=== PATIENT | male | born 1975 | race Caucasian/White ===

== ENCOUNTER 2017-04-13 19:26 | Emergency (ER) | payer SELFPAY ==
[2017-04-13 19:26] VITALS: BMI 28.7
--- NOTE | 2017-04-13 21:23 | C.PDOC ---
History Of Present Illness Patient is a 41 year old male brought in by [facility] for unknown reasons. Patient was reported to be intoxicated in [facility]. Denies any complaints at this time. Time Seen by Provider: 04/13/17 19:37 Chief Complaint (Nursing): Substance Abuse History Per: Patient History/Exam Limitations: no limitations Onset/Duration Of Symptoms: Hrs Current Symptoms Are (Timing): Still Present Suicide/Self Injury Attempted (Context): None Modifying Factor(s): Alcohol Associated Symptoms: denies: Depression, Suicidal Thoughts, Suicidal Plan Involuntary Hold By: None Recent travel outside of the [place]: No Past Medical History Reviewed: Historical Data, Nursing Documentation, Vital Signs Vital Signs: Last Vital Signs Temp 97.7 F 04/13/17 22:09 Pulse 84 04/14/17 01:55 Resp 18 04/14/17 01:55 BP 105/56 L 04/14/17 01:55 Pulse Ox 98 04/14/17 01:55 - Medical History PMH: HTN Surgical History: No Surg Hx - [facility] Procedures INJECT/INFUSE NEC (09/26/14) Family History: States: Unknown Family Hx - Social History Hx Tobacco Use: No Hx Alcohol Use: Yes Hx Substance Use: No - Immunization History Hx Tetanus Toxoid Vaccination: No Hx Influenza Vaccination: No Hx Pneumococcal Vaccination: No Review Of Systems Constitutional: Negative for: Fever, Chills Gastrointestinal: Negative for: Nausea, Vomiting, Diarrhea Neurological: Positive for: Other (ETOH intoxication) Physical Exam - Physical Exam Appears: Non-toxic, Other (ETOH on breath) Skin: Normal Color, Warm, Dry Head: Atraumatic, Normacephalic Oral Mucosa: Moist Chest: Symmetrical, No Tenderness Cardiovascular: Rhythm Regular, No Murmur Respiratory: Normal Breath Sounds, No Rales, No Rhonchi, No Wheezing Gastrointestinal/Abdominal: Soft, No Tenderness Neurological/Psych: Oriented x3, Normal Speech, Normal Cognition ED Course And Treatment O2 Sat by Pulse Oximetry: 96 Medical Decision Making Medical Decision Making: Pt ambulated with steady gait Stable for discharge Disposition - Disposition Disposition: HOME/ ROUTINE Disposition Time: 05:21 Condition: FAIR Forms: Gen Discharge Inst Greenlandic - Clinical Impression Clinical Impression: Alcohol abuse with intoxication - Scribe Statement The provider has reviewed the documentation as recorded by the [place] All medical record entries made by the Scribe were at my direction and personally dictated by me. I have reviewed the chart and agree that the record accurately reflects my personal performance of the history, physical exam, medical decision making, and the department course for this patient. I have also personally directed, reviewed, and agree with the discharge instructions and disposition.
[2017-04-13 22:10] VITALS: RESP 18
[2017-04-14 05:49] VITALS: BP 129/83; PULSE 90; TEMP 98.1; O2SAT 99
== END 2017-04-14 05:53 | disposition home or self-care (01) ==
LOC: C.ER 19:26
DX: F10.129 Alcohol abuse with intoxication, unspecified (principal)

== ENCOUNTER 2017-04-16 17:53 | Observation (INO) | payer SELFPAY ==
[2017-04-16 18:12] VITALS: BMI 30.9
[2017-04-16 19:55] VITALS: O2SAT 98
--- NOTE | 2017-04-16 21:26 | C.PDOC ---
History Of Present Illness Pt was BIBEMS due to public alcohol intoxication. Time Seen by Provider: 04/16/17 20:56 Chief Complaint (Nursing): Substance Abuse History Per: Patient, EMS History/Exam Limitations: intoxication Onset/Duration Of Symptoms: Unknown (today) Current Symptoms Are (Timing): Still Present Modifying Factor(s): Alcohol Severity: Severe Additional History Per: Prior Records Past Medical History Reviewed: Historical Data, Nursing Documentation, Vital Signs Vital Signs: Last Vital Signs Temp 97.7 F 04/16/17 17:55 Pulse 110 H 04/16/17 19:55 Resp 18 04/16/17 19:55 BP 125/86 04/16/17 19:55 Pulse Ox 98 04/16/17 21:26 - Medical History PMH: HTN Other PMH: Alcohol abuse - [facility] Procedures INJECT/INFUSE NEC (09/26/14) Family History: States: Unknown Family Hx - Social History Hx Tobacco Use: No Hx Alcohol Use: Yes Hx Substance Use: No - Immunization History Hx Tetanus Toxoid Vaccination: No Hx Influenza Vaccination: No Hx Pneumococcal Vaccination: No Review Of Systems Review Of Systems: ROS cannot be obtained secondary to pt's inabilty to answer questions. Physical Exam - Physical Exam Appears: Non-toxic, No Acute Distress, Other (AOB, intoxicated) Skin: Normal Color, Warm, Dry Head: Atraumatic Eye(s): bilateral: PERRL Neck: Normal ROM, No Midline Cervical Tenderness, No Step Off Deformity, Supple Chest: Symmetrical, No Deformity Cardiovascular: Rhythm Regular Respiratory: Normal Breath Sounds, No Accessory Muscle Use Gastrointestinal/Abdominal: Soft Extremity: Normal ROM, No Deformity Neurological/Psych: Eyes Open With Command Pain Response: Withdraws With Pain Gait: Unable To Assess ED Course And Treatment O2 Sat by Pulse Oximetry: 98 Pulse Ox Interpretation: Normal Reassessment Condition: Improved ED OBSERVATION Discharge: Yes Date of observation admission: 04/16/17 Time of observation admission: 21:00 - Observation admission statement Patient is being placed in observation because:: Alcohol intoxication - Goals of Observation Goals of observation are:: Sobriety - Progress Note Progress Note: 04/17/17 01:11 Pt is now clinically sober. AAOx3. Steady gait. He is asking to be discharged home. Disposition Counseled Patient/Family Regarding: Diagnosis, Need For Followup - Disposition Disposition: HOME/ ROUTINE Disposition Time: 01:12 Condition: IMPROVED - Clinical Impression Clinical Impression: Alcohol abuse with intoxication
[2017-04-17 01:28] VITALS: BP 128/79; PULSE 103; RESP 16; TEMP 98.1
== END 2017-04-17 01:12 | disposition home or self-care (01) ==
LOC: C.ER 17:53 → C.9OBSV 21:26
PROVIDERS: ADMIT Emergency Medicine; ATTEND Emergency Medicine
DX: F10.129 Alcohol abuse with intoxication, unspecified (principal); I10 Essential (primary) hypertension; Y90.9 Presence of alcohol in blood, level not specified
CPT/HCPCS: G0378 ×2